=== PATIENT | female | born 1985 | race Caucasian/White ===

== ENCOUNTER 2019-09-01 08:35 | Outpatient (CLI) | payer MEDICAID, SELFPAY ==
--- NOTE | 2019-09-01 08:41 | US_ITS ---
WS: [id number] TRANSABDOMINAL FIRST TRIMESTER ULTRASOUND HISTORY: SUPERVISION NORMAL : 4 PARA: 3 COMPARISON: None available. FINDINGS: Cervical length is 4.2 cm; closed. Single live intrauterine . [place] rump length measuring 1.7 cm. Yolk sac measures 0.3 cm. Gestational sac measures 8w1d cm. cardiac tones 157 BPM. Estimated date of delivery 04/11/2020. The fetus appears to be viable with good motion. US/US OB <= 14 weeks fetus [id number] IMPRESSION: Viable at 8 weeks 1 day gestation with a due date April 11, 2020.
== END 2019-09-01 08:36 | disposition home or self-care (01) ==
LOC: US 08:38
PROVIDERS: Family Provider Family Medicine; PCP Family Medicine; Visit Provider Family Medicine
DX: Z34.91 Encounter for supervision of normal pregnancy, unspecified, first trimester (principal); Z3A.01 Less than 8 weeks gestation of pregnancy
CPT/HCPCS: 76801

== ENCOUNTER 2019-11-20 08:35 | Outpatient (CLI) | payer MEDICAID, SELFPAY ==
--- NOTE | 2019-11-20 08:45 | US_ITS ---
WS: [id number] ULTRASOUND TRANSABDOMINAL HISTORY: SUPERVISION OF NORMAL , MULTIPAROUS : 7 PARA: 3 COMPARISON: None available. FINDINGS: Cervical length is 3.9 cm; closed. Placenta grade 0, anterior cardiac tones 141 BPM. Fetus is seen in the cephalic presentation. Anterior placenta is noted. Multiple placental lakes are identified. Biparietal diameter measures 4.6 cm, equals 19w6d. Head circumference measures 17.3 cm, equals 19w6d. Abdomen circumference measures 14.6 cm, equals 19w6d. Femur length measures 3.2 cm, equals 19w6d. Estimated gestational age 19w6d An estimated delivery 04/09/2020. Estimated weight 317 g. The stomach, kidney, lateral ventricles, cerebellum, cisterna magnum, upper lips, are noted. US/US OB >= 14 weeks fetus [id number] IMPRESSION: 1. Single live intrauterine uterines . Estimated gestational age 19w 6d and estimated delivery 04/09/2020.
== END 2019-11-20 08:36 | disposition home or self-care (01) ==
PROVIDERS: Visit Provider Family Medicine
DX: Z34.92 Encounter for supervision of normal pregnancy, unspecified, second trimester (principal); Z3A.19 19 weeks gestation of pregnancy
CPT/HCPCS: 76805

== ENCOUNTER 2020-03-10 10:33 | Outpatient (CLI) | payer MEDICAID, SELFPAY ==
--- NOTE | 2020-03-10 10:36 | US_ITS ---
WS: [id number] OB ultrasound, 03/10/2020 Clinical Data: SMALL FOR GESTATIONAL AGE/MATHEW/EFW Comparison: OB ultrasound, 11/20/2019. Findings: There is a single intrauterine in the vertex presentation. The placenta is Anterior and gra de 3. There is a normal amount of amnionic fluid. The heart rate is 147 beats per minute. Measurements of growth and development: BPD: 8.8 cm HC: 32.4 cm AC: 28.5 cm FL: 6.7 cm The estimated weight is 2275 or approximately 5 lbs. 0 oz. The estimated gestational age is 34w 6d with an CURT of approximately 04/15/2020. The MATHEW is 11.72 cm. [place] [id number] Impression: 1. Single intrauterine in vertex presentation. 2. Estimated gestational age 34w6d with an CURT of 04/15/2020. 3. heart rate 147 beats per minute.
== END 2020-03-10 10:34 | disposition home or self-care (01) ==
LOC: US 10:34
PROVIDERS: PCP Family Medicine; Visit Provider Family Medicine
DX: O36.5930 Maternal care for other known or suspected poor fetal growth, third trimester, not applicable or unspecified (principal)
CPT/HCPCS: 76816

== ENCOUNTER 2020-03-15 10:11 | Outpatient (CLI) | payer MEDICAID, SELFPAY ==
[2020-03-15 10:17] VITALS: BP 107/62; PULSE 75; BMI 23.1
[2020-03-15 10:32] VITALS: BP 109/64; PULSE 84
== END 2020-03-15 10:45 | disposition home or self-care (01) ==
LOC: OPOB 10:12 → OBGYN 10:12
PROVIDERS: PCP Family Medicine; Visit Provider Family Medicine
DX: O36.5990 Maternal care for other known or suspected poor fetal growth, unspecified trimester, not applicable or unspecified (principal); Z3A.00 Weeks of gestation of pregnancy not specified
CPT/HCPCS: 59025

== ENCOUNTER 2020-03-18 11:52 | Outpatient (CLI) | payer MEDICAID, SELFPAY ==
--- NOTE | 2020-03-18 12:45 | US_ITS ---
WS: [id number] BIOPHYSICAL PROFILE AMNIOTIC FLUID HISTORY: FOLLOW UP MATHEW/BPP COMPARISON: 03/10/2020 Cardiac activity: 150 bpm. Cervix: closed. Placenta: Anterior, no previa or abruption. Placenta grade: 2 Parameters are as follows: Breathin Movement: 2 Tone: 2 Fluid volume: 2 Amniotic fluid index: 9.9 cm which is just above the 5th percentile for age. Slightly decreased as co mpared to 03/10/2020. Largest single vertical pocket 3.5 cm. US/US OB F/U w BPP wo NST IMPRESSION: 1. Biophysical profile score: 02/19. 2. Low normal amniotic fluid index. Slightly increased since 03/10/2020.
== END 2020-03-18 11:53 | disposition home or self-care (01) ==
LOC: RAD 11:55
PROVIDERS: PCP Family Medicine; Visit Provider Family Medicine
DX: O36.5930 Maternal care for other known or suspected poor fetal growth, third trimester, not applicable or unspecified (principal)
CPT/HCPCS: 76816; 76819

== ENCOUNTER 2020-03-18 12:21 | Outpatient (CLI) | payer MEDICAID, SELFPAY ==
[2020-03-18 13:00] VITALS: BMI 23.3
[2020-03-18 13:05] VITALS: BP 102/66; PULSE 81
[2020-03-18 14:10] VITALS: BP 102/66; PULSE 81
== END 2020-03-18 13:20 | disposition home or self-care (01) ==
LOC: OPOB 12:27 → OBGYN 12:29
PROVIDERS: PCP Family Medicine; Visit Provider Family Medicine
DX: O26.899 Other specified pregnancy related conditions, unspecified trimester (principal); Z3A.00 Weeks of gestation of pregnancy not specified; R10.9 Unspecified abdominal pain
CPT/HCPCS: 59025; 99211

== ENCOUNTER 2020-03-22 11:31 | Outpatient (CLI) | payer MEDICAID, SELFPAY ==
[2020-03-22 11:31] VITALS: BMI 23.6
[2020-03-22 11:47] VITALS: RESP 16; TEMP 36.3
== END 2020-03-22 12:17 | disposition home or self-care (01) ==
LOC: OPOB 11:38 → OBGYN 03-23 08:30
PROVIDERS: PCP Family Medicine; Visit Provider Family Medicine
DX: O36.5990 Maternal care for other known or suspected poor fetal growth, unspecified trimester, not applicable or unspecified (principal); Z3A.00 Weeks of gestation of pregnancy not specified
CPT/HCPCS: 59025; 99211

== ENCOUNTER 2020-03-25 12:27 | Outpatient (CLI) | payer MEDICAID, SELFPAY ==
--- NOTE | 2020-03-25 12:38 | US_ITS ---
WS: [id number] OB ultrasound for biophysical profile, 03/25/2020 Clinical Data: GROWTH RETARDATION,ANTEPARTUM 3RD TRIMESTER Comparison: OB ultrasound, 03/18/2020. Findings: There is a single intrauterine in the vertex presentation. The heart rate is 147 beat s per minute. The placenta is anterior.. The biophysical profile is 8 of 8 with normal scores for breathing, movement, posture and tone and amniotic fluid volume. There is asymmetry of the cisterna magna. As may be a normal variation. Th e ventricles were not well identified. The SD ratio of the umbilical artery entering the baby was 2.50, midportion 2.46 and entering the dinora centa 2.00. The MATHEW was 14.03 cm US/US OB F/U w BPP wo NST Impression: 1. Single intrauterine in vertex presentation. 2. Biophysical profile 8 of 8. 3. heart rate 147 beats per minute. 4. MATHEW 14.03 cm 5. Asymmetry of the cisterna magna and poorly identified ventricles. The findings were discussed with Dr. Velasquez.
== END 2020-03-25 12:28 | disposition home or self-care (01) ==
LOC: RAD 12:29
PROVIDERS: PCP Family Medicine; Visit Provider Family Medicine
DX: O36.5930 Maternal care for other known or suspected poor fetal growth, third trimester, not applicable or unspecified (principal)
CPT/HCPCS: 76816; 76819

== ENCOUNTER 2020-03-25 14:12 | Outpatient (CLI) | payer MEDICAID, SELFPAY ==
[2020-03-25 14:46] VITALS: BMI 29.0
[2020-03-25 15:17] VITALS: BP 110/67; PULSE 80; RESP 17
== END 2020-03-25 15:22 | disposition home or self-care (01) ==
LOC: OPOB 14:12 → OBGYN 14:13
PROVIDERS: PCP Family Medicine; Visit Provider Family Medicine
DX: O36.5990 Maternal care for other known or suspected poor fetal growth, unspecified trimester, not applicable or unspecified (principal); Z3A.00 Weeks of gestation of pregnancy not specified
CPT/HCPCS: 59025

== ENCOUNTER 2020-03-29 10:30 | Outpatient (CLI) | payer MEDICAID, SELFPAY ==
[2020-03-29 11:00] VITALS: RESP 18; TEMP 36.8; BMI 23.5
[2020-03-29 11:04] VITALS: BP 108/66; PULSE 83
[2020-03-29 11:17] VITALS: BP 107/64; PULSE 75
== END 2020-03-29 11:30 | disposition home or self-care (01) ==
LOC: OPOB 11:02
PROVIDERS: PCP Family Medicine; Visit Provider Family Medicine
DX: O36.5990 Maternal care for other known or suspected poor fetal growth, unspecified trimester, not applicable or unspecified (principal)
CPT/HCPCS: 59025

== ENCOUNTER 2020-04-01 12:34 | Outpatient (CLI) | payer MEDICAID, SELFPAY ==
--- NOTE | 2020-04-01 12:42 | US_ITS ---
WS: [id number] BIOPHYSICAL PROFILE Umbilical artery Doppler EVALUATION HISTORY: GROWTH RETARDATION,ANTEPARTUM/3RD TRIMESTER COMPARISON: 03/25/2020 Cardiac activity: 120 bpm. Cervix: closed. Placenta: Anterior placenta. Separate lobe of the placenta anteriorly is probably a succenturiate lob e. Placenta grade: 2 position: Cephalic. Amniotic fluid index: 10.6 cm; above the 5th percentile. Abnormal appearance to the posterior fossa. Dilated cystic collection posterior fossa. Cerebellum is small caliber and the vermis is hypoplastic or absent. Parameters are as follows: Breathin Movement: 2 Tone: 2 Fluid volume: 2 UMBILICAL ARTERY DOPPLER Waveform analysis: Normal systolic and diastolic velocities. Diastolic velocity remains above the bas hern[place]. Normal upstroke of waveform. SD ratios: SD ratios range from 1.92-2.69. Resistivity indices: 0.52 -0.63 US/US OB F/U w BPP wo NST IMPRESSION: 1. Biophysical profile score: 8/8. 2. Normal umbilical Doppler evaluation. 3. 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
== END 2020-04-01 12:35 | disposition home or self-care (01) ==
LOC: RAD 12:35
PROVIDERS: PCP Family Medicine; Visit Provider Family Medicine
DX: O36.5930 Maternal care for other known or suspected poor fetal growth, third trimester, not applicable or unspecified (principal)
CPT/HCPCS: 76816; 76819

== ENCOUNTER 2020-04-01 14:03 | Outpatient (CLI) | payer BC, MEDICAID, SELFPAY ==
[2020-04-01 14:14] VITALS: TEMP 36.7
[2020-04-01 14:15] VITALS: BMI 23.3
[2020-04-01 14:25] VITALS: BP 110/67; PULSE 69
[2020-04-01 14:40] VITALS: BP 104/69; PULSE 69
[2020-04-01 14:55] VITALS: BP 128/76; PULSE 78
[2020-04-01 15:00] VITALS: BP 128/76; PULSE 78; TEMP 36.7
[2020-04-04 10:42] LABS: Coronavirus Lab Test PTC Negative
== END 2020-04-01 15:00 | disposition home or self-care (01) ==
LOC: OPOB 14:12 → OBGYN 14:13
PROVIDERS: PCP Family Medicine; Visit Provider Family Medicine
DX: O36.5990 Maternal care for other known or suspected poor fetal growth, unspecified trimester, not applicable or unspecified (principal); Z3A.00 Weeks of gestation of pregnancy not specified
CPT/HCPCS: 59025; 87635; 99211

== ENCOUNTER 2020-04-05 11:15 | Outpatient (CLI) | payer MEDICAID, SELFPAY ==
[2020-04-05 11:30] VITALS: RESP 16; TEMP 36.4; BMI 23.5
[2020-04-05 12:10] VITALS: BP 104/71; RESP 16; TEMP 36.4
[2020-04-05 12:14] VITALS: BP 102/69; BP 104/71; BP 91/71; PULSE 74; PULSE 76; PULSE 80
== END 2020-04-05 12:05 | disposition home or self-care (01) ==
LOC: OPOB 11:21
PROVIDERS: Absent Provider Family Medicine; PCP Family Medicine; Visit Provider Family Medicine
DX: O36.5990 Maternal care for other known or suspected poor fetal growth, unspecified trimester, not applicable or unspecified (principal); Z3A.00 Weeks of gestation of pregnancy not specified
CPT/HCPCS: 59025; 99211

== ENCOUNTER 2020-04-07 06:15 | Inpatient (IN) | payer MEDICAID, SELFPAY ==
[2020-04-07] VITALS (53 sets, daily range): BP systolic 0–144; BP diastolic 0–83; PULSE 55–101; RESP 16–18; TEMP 36.4–37.1; O2SAT 93–100; BMI 23.6
[2020-04-07 07:30] LABS: Basophils % 0.3 %; Eosinophils # 0.1 10^3/uL (0.0-0.8); Hemoglobin 11.3 g/dL (11.5-15.3); Lymphocytes # 1.8 10^3/uL (0.8-4.8); Lymphocytes % 26.5 %; Mean Corpuscular HGB Conc 31.4 g/dL (30.0-36.0); Mean Corpuscular Hemoglobin 26.6 pg (28.0-34.0); Mean Corpuscular Volume 84.7 fL (81-99); Mean Platelet Volume 13.1 fL (7.4-10.4); Monocytes # 0.6 10^3/uL (0.2-0.9); Monocytes % 8.3 %; Neutrophils # 4.37 10^3/uL (1.8-7.7); Neutrophils % 63.5 %; Nucleated Red Blood Cells % 0 %; Platelet Count 164 10^3/cmm (130-400); Red Blood Count 4.25 10^6/uL (4.1-5.3); Red Cell Distribution Width 13.6 % (12.1-15.1); White Blood Count 6.9 10^3/uL (4.0-10.0)
[2020-04-07] MEDS: oxytocin 30 UNIT/500 ML BAG 4 UNIT IV (07:30)
[2020-04-07] MEDS: dextrose 5%-lactated ringers 1,000 ML 125 ML IV (07:31)
--- NOTE | 2020-04-07 08:18 | P.HP_ITS ---
Providers/Chief Complaint Primary Care Provider: Juan Velasquez MD Chief Complaint: IOL History of Present Illness Lois Ibrahim is a 34 year old at 39.3 weeks gestation by 8-week ultrasound inconsistent with unsure LMP. Her is complicated by history of heavy bleeding, history of rapid delivery after induction, history of IUGR, rubella nonimmune, asymmetric growth, enlarged cisterna magna on 38-week ultrasound with negative NIPT testing. The patient presents for induction of labor secondary to abnormal findings on the enlarged cisterna magna. The patient was found to have this enlargement on an ultrasound done for estimated weight. The patient was urgently sent to perinatology last week and they felt that the findings were not consistent with Dandy-Walker malformation and an NIPT test was done that was negative. They felt that it was safe for the to deliver here. Currently the patient denies any chest pains, shortness of breath, fever, nausea, vomiting, diarrhea, constipation, dysuria. She denies any vaginal bleeding and leakage of fluid. Medications/Allergies Home Medications Medication Instructions Recorded Confirmed Last Taken Type No Known Home Medications 03/15/20 03/22/20 Unknown History Allergies Allergy/AdvReac Type Severity Reaction Status Date / Time No Known Allergies Allergy Verified 03/25/20 14:51 PFSH Acute PFSH: Medical History Request for sterilization Family History Denies family history of Diabetes Clotting disorder Hyperlipidemia Anesthesia complication Bleeding disorder Hypertension Stroke Social History Smoking and tobacco status: never smoked Alcohol intake: never Female Reproductive History: : 7 Vitals/I&O/Wt Last Vital Signs Temp 98.4 F 04/07/20 07:04 Pulse 69 04/07/20 08:15 Resp 16 04/07/20 07:04 BP 130/82 04/07/20 08:15 04/06/20 04/07/20 04/07/20 22:59 06:59 14:59 Intake Total 2 / 2 Balance 2 / 2 Weight last 48 hrs Weight 4.868 oz Weight 138 lb Physical Exam Narrative: EXAM NARRATIVE: General: Alert and oriented x3 Eyes: Pupils equal round and reactive to light and accommodation Mouth: Mucous membranes moist, pharynx non-erythematous Cardiac: Regular rate and rhythm without murmurs Lungs: Clear to auscultation bilaterally without wheezes, crackles or rhonchi Abdomen: Soft, non-tender, fundus small for gestational age Extremities: Trace edema in the bilateral lower extremities Data : 04/07/20 06:50 A&P Additional A&P Information Lois Ibrahim is a 34 year old at 39.3 weeks gestation by 8-week ultrasound inconsistent with unsure LMP. Her is complicated by history of heavy bleeding, history of rapid delivery after induction, history of IUGR, rubella nonimmune, asymmetric growth, enlarged cisterna magna on 38-week ultrasound with negative NIPT testing. Per recommendations from perinatology the patient should be delivered now that she is 39 weeks gestation. Her NIPT testing returned negative yesterday. The patient has been started on IV Pitocin and she is charlie well every 2 to 3 minutes. heart tones are in the mid 130s with moderate variability and good accelerations with a category 1 tracing. I had a lengthy discussion with the patient and her regarding the possibility of abnormalities with the ultrasound showing changes in the cisterna magna. They were comfortable with delivering here. We will watch for any signs of complications after delivery. The patient does have a history of heavier bleeding after her delivery in 2011 but did not have bleeding issues in the last 2 pregnancies. We will watch for signs of bleeding issues for sure. Overall patient is doing well. Patient is GBS negative. Continue with induction. The patient did have spontaneous rupture membranes approximately 10 minutes ago while getting up to go to the bathroom. Clear fluid was noted. Attestations Medical Necessity Statement*: The patient will be here for greater than 2 midnights due to routine intrapartum and management of labor and delivery. Coding Level of Care Code Acute Associate Property Manager for Yessenia Carroll
--- NOTE | 2020-04-07 08:50 | ANES.PROC ---
Anesthesia Procedures Procedure/Date: 04/07/20 Epidural: Time Out Performed: Yes Consents Signed: Procedure Consent Consent: requested by attending/covering physician, from patient, risks and benefits reviewed and patient agrees to proceed Lumbar Level: L3-L4 Epidural position: sitting Epidural procedure: sterile prep of area, 1% lidocaine to numb the area, 18 g needle, negative for paresthesia passed, neg for paresthesia, test dose given, 1.5% xylocaine 1:200k epi (5 cc), 0.2% Ropivacaine bolus ml (5 ml), placed PCEA, no systemic response, sterile dressing applied, L.U.D. no apparent complications and 0.2% Ropiavacaine @ mls/hr (13 ml) Additional Comments: ALEXUS at 4 cm
[2020-04-07] MEDS: lactated ringers 1,000 ML 999 ML IV (08:56)
[2020-04-07] MEDS: ondansetron 2 mg/ML SDV 2 mL 4 MG IVP (09:28)
--- NOTE | 2020-04-07 10:13 | PM.DELIVERY ---
Delivery Note: Date of delivery: April 07, 2020 Pre-delivery diagnoses: 1. Intrauterine at 39.3 weeks gestation 2. Asymmetric growth with enlarged cisterna magna 3. History of hemorrhage 4. Rubella nonimmune Post-delivery diagnoses: 1. Intrauterine status post spontaneous vaginal delivery at 39.3 weeks gestation 2. Asymmetric growth with enlarged cisterna magna 3. History of hemorrhage 4. Rubella nonimmune 5. Delivery of healthy infant female weighing 6 pounds 12 ounces with Apgars of 9 and 9 Procedure: Spontaneous vaginal delivery Op report anesthesia: Epidural Estimated blood loss (mL): 100 Findings: Lois Ibrahim is a 34 year old at 39.3 weeks gestation by 8-week ultrasound inconsistent with unsure LMP. Her is complicated by history of heavy bleeding, history of rapid delivery after induction, history of IUGR, rubella nonimmune, asymmetric growth, enlarged cisterna magna on 38-week ultrasound with negative NIPT testing. Pre-Delivery Course: The patient presented to labor and delivery for induction of labor secondary to abnormal measurements of the cisterna magna and concern for asymmetric growth. The patient had been seen at perinatology in [place] and they had recommended delivery during the 39th week. They felt that it was safe for the infant to deliver here. NIPT testing was negative. The patient was 4 cm dilated upon admission and was started on IV Pitocin at approximately 7:30 AM on 04/07/2020. The patient responded quickly and had regular contractions. SROM took place at 8:12 AM on 04/07/2020. Clear fluid was noted. The patient made rapid change and was complete by 9:36 AM on 04/07/2020. Delivery: The patient began pushing at 9:40 AM on 04/07/2020. The patient pushed well and the infant delivered in the OA position at 9:45 AM on 04/07/2020. The left shoulder was the anterior shoulder and it delivered with downward pressure. The rest of the delivered without complication. The infant was crying immediately upon delivery. The mouth and nose were bulb suctioned by myself. The infant was placed on the mother's chest where the nurses were waiting to care for her. The cord was clamped by myself after approximately 1 minute and cut by the infant's father. Cord blood was obtained. The cord was then drained of blood and traction was placed on the umbilical cord. Uterine massage was done and the placenta delivered without complication at 9:51 AM on 04/07/2020. The placenta was noted to be intact with a central umbilical cord insertion site with loose fixation of the vessels to the placenta. The uterus was massaged and the patient had mild bleeding. The cervix was inspected and no lacerations were noted. The vaginal wall was inspected and no lacerations were noted. The uterus is currently firm and midline and low. Currently both the mother and are doing very well. Coding Level of Care Code Acute Central Service Supply Distributor for Chg Carly
--- NOTE | 2020-04-07 11:26 | PC.NURSE ---
SEE NOTE ON BABY'S CHART
--- NOTE | 2020-04-07 12:15 | PC.NURSE ---
UTERUS TRES DEVIATED SO PT UP TO BATHROOM AND VOIDED LARGE AMOUNT AND THEN AMBULATED TO 205 AND ORIENTED TO HER ROOM, CALL LIGHT SYSTEM AND WENT OVER PP PACK,ETC.
[2020-04-07] MEDS: docusate sodium 100 mg Capsule PO (17:19)
--- NOTE | 2020-04-07 17:25 | PM.PN ---
Subjective Subjective: Interval history: Ms. Ibrahim is a 34 y/o s/p spontaneous vaginal delivery. Vitals/I&O/Wt Last Vital Signs Temp 98.3 F 04/07/20 15:24 Pulse 74 04/07/20 15:24 Resp 16 04/07/20 15:24 BP 99/57 04/07/20 15:24 Pulse Ox 96 04/07/20 15:24 04/07/20 04/07/20 04/07/20 06:59 14:59 22:59 Intake Total Output Total 400 / 400 Balance -385 / -385 Weight last 48 hrs Weight 138 g Weight 62.596 kg Physical Exam Narrative: EXAM NARRATIVE: GA; alert and oriented x 3 HEENT: normal Breasts: engorged Nipples - skin intact Lungs; clear to auscultation Heart: regular rhythm, no murmurs. Abd: Appropriately tender. BS+. Uterine fundus below umbilicus. No Fundal Tenderness. Perineum: normal lochia. Extremities: no edema, no cyanosis, no tenderness. Urinary Catheter Management^: Navarro: Cath Placed During This Visit: yes, but has since been removed by the nurse Reason for Continuing Indwelling Catheter: Other Urinary Catheter Date of Insertion: 04/07/20 Urinary Catheter Time of Insertion: 08:50 Date Urinary Catheter Removed: 04/07/20 Time Urinary Catheter Discontinued: 09:38 Data : 04/07/20 06:50 A&P Assessment and plan (1) Request for sterilization: 34-year-old female G 8 P 4 Status post spontaneous vaginal delivery desire permanent sterilization. She is requesting tubal ligation. The patient was counseled regarding all methods of contraception, risk and complications. She elected to continue to proceed with the tubal ligation as planned when she delivers. She has signed a consent on 02/29/2020, and was advised of the state requirement of 30 days of consent prior to the tubal ligation. partial salpingectomy is associated with lower failure rates than interval tubal occlusions done via laparoscopy. She was counseled regarding the procedure, alternative, risks and complications. Complications of tubal sterilization include problems like but not limited to anesthesia, hemorrhage, organ damage, and mortality. Although pregnancies after a sterilization procedure are rare, there is substantial risk that any post-sterilization could be ectopic. The overall failure rate is on the order of 0.5% in the first year but a study showed that sterilization failures vary by both age at sterilization and the method used. The study also found that the risks of accumulate over time, and that for women aged 18 to 27 years, failure rates can be as high as 5% with bipolar coagulation and the spring clip. The patient was informed of the risks and benefits of the procedure. Risks included but were not limited to bleeding, infection, and injury to internal organs. The patient was counseled on the risk of sterilization failure. The patient was informed that in the event a occurs the risk of ectopic is increased. The patient was counseled that bilateral tubal ligation is intended to be permanent and nonreversible. She was also counseled that there are nonpermanent forms of control available to her. The patient expressed understanding of the risks involved, all questions were answered. She was informed to notified the nursing personnel upon her arrival to labor and delivery that she had requested a tubal ligation and had signed a consent. Status: Acute Attestations Medical Necessity Statement*: In my professional opinion per admitting diagnosis Coding Level of Care Code Acute Children'S Nursery Assistant for g Fwd Diagnoses Request for sterilization Z30.2
[2020-04-07] MEDS: acetaminophen 325 mg Tablet 650 MG PO (17:26)
[2020-04-07 22:25] LABS: Hematocrit 33.8 % (37.0-47.0); Hemoglobin 10.6 g/dL (11.5-15.3); Mean Corpuscular HGB Conc 31.4 g/dL (30.0-36.0); Mean Corpuscular Hemoglobin 26.7 pg (28.0-34.0); Mean Corpuscular Volume 85.1 fL (81-99); Mean Platelet Volume 12.6 fL (7.4-10.4); Platelet Count 141 10^3/cmm (130-400); Red Blood Count 3.97 10^6/uL (4.1-5.3); Red Cell Distribution Width 13.7 % (12.1-15.1); White Blood Count 8.4 10^3/uL (4.0-10.0)
[2020-04-08] VITALS (12 sets, daily range): BP systolic 102–135; BP diastolic 61–83; PULSE 61–90; RESP 15–21; TEMP 36.3–36.7; O2SAT 97–99
--- NOTE | 2020-04-08 06:22 | PM.PN ---
Subjective Subjective: Interval history: Denies complaints this morning. States that she still wishes to proceed with sterilization. Vitals/I&O/Wt Last Vital Signs Temp 98.1 F 04/08/20 03:36 Pulse 62 04/08/20 03:36 Resp 18 04/08/20 03:36 BP 102/65 04/08/20 03:36 Pulse Ox 98 04/08/20 03:36 04/07/20 04/07/20 04/08/20 14:59 22:59 06:59 Intake Total Output Total 400 / 400 Balance -385 / -385 Weight last 48 hrs Weight 4.868 oz Weight 138 lb Physical Exam Const: COMMON NORMALS: no acute distress, average body habitus, alert and well nourished GENERAL APPEARANCE: well developed ORIENTATION/CONSCIOUSNESS: Yes oriented to person, Yes oriented to place and Yes oriented to time GI: COMMON NORMALS: Soft to palpation, non-tender, No hepatosplenomegaly present and no masses (Except for nontender uterus) AUSCULTATION: Yes normoactive bowel sounds PALPATION: Yes Soft to palpation, Yes No hepatosplenomegaly present and No Hernia present : EXTERNAL FEMALE EXAM: No Hernia present Neuro: SENSORIUM/ORIENTATION: Yes alert, Yes oriented to person, Yes oriented to place and Yes oriented to time Psych: COMMON NORMALS: normal affect MOOD & AFFECT: Yes euthymic mood Urinary Catheter Management^: Navarro: Cath Placed During This Visit: yes, but has since been removed by the nurse Reason for Continuing Indwelling Catheter: Other Urinary Catheter Date of Insertion: 04/07/20 Urinary Catheter Time of Insertion: 08:50 Date Urinary Catheter Removed: 04/07/20 Time Urinary Catheter Discontinued: 09:38 Data : 04/07/20 21:50 A&P Assessment and plan (1) Request for sterilization: Patient is day 1 status post vaginal delivery by Dr. Velasquez. She still desires sterilization. Reviewed with her this morning the permanence of sterilization, failure rate, risk of ectopic and risks of the surgery. Questions were answered. Patient being prepared for surgery ( bilateral partial salpingectomy). Status: Acute Attestations Medical Necessity Statement*: Patient having sterilization performed today Coding Level of Care Code Acute Early Childhood Education Coordinator for shelley Fwodilia Diagnoses Request for sterilization Z30.2
--- NOTE | 2020-04-08 06:38 | P.ANESPOST_ITS ---
Inpatient post-anesthesia follow up: Airway intact: Yes Vital signs: Temperature 97.9 F Pulse Rate 68 Respiratory Rate 16 Blood Pressure 135/83 Pulse Oximetry 99 Oxygen Delivery Me thod Room Air Oxygen Flow Rate Fraction of Inspir ed Oxygen Hydration adequate: Yes Nausea and vomiting: No Pain level: 1 Mental status: Baseline Additional Comments: No signs of infection at neuraxial site, up and walking since epidural removed w/ no lower extremity numbness/we akness, urintating since garcia removed, denies headache
--- NOTE | 2020-04-08 06:39 | ANES.PREANE2 ---
Pre-Anesthetic Assessment Pre-Anesthetic Assessment: Height/Weight: Height 1.63 m Weight 138 g Temp Pulse Resp BP Pulse Ox 97.9 F 68 16 135/83 99 04/08/20 06:33 04/08/20 06:33 04/08/20 06:33 04/08/20 06:33 04/08/20 06:33 Preop Diagnosis: IUP Proposed Procedure: Operation Date: 04/08/20 07:00 Proposed Procedures p Bilateral Tubal Ligation(Not Applicable) - Uriah Stanley MD Familial anesthetic complications: none Was Beta Isi taken within 24 hours: N/A Last intake: Intake NPO > 8 hrs Last Liquid Date 04/08/20 Last Liquid Time 23:00 Last Solid Date 04/08/20 Last Solid Time 20:00 Social: Social History: No alcohol and No tobacco Exam: Pre-Anes Outpt Exam: alert, oriented x 3, clear to auscultation bilaterally and regular rate & rhythm Airway: Cervical ROM: WNL MP: 2 Dentition: Full Anesthetic Plan: ASA status: 1 Anesthesia: General Other: RSI Risk of > 500 ml blood loss (7ml/kg in children): No Meds/Allergies Current Medications: Current Medications Generic Name Dose Route Start Last Admin Trade Name Freq PRN Reason Stop Dose Admin Acetaminophen 650 mg 04/07/20 07:04 04/07/20 17:26 Tylenol PO 650 mg Q6H PRN Administration Mild pain or temp > 100.4 Docusate Sodium 100 mg 04/07/20 18:00 04/07/20 17:19 Colace PO 100 mg BID IGGY Administration Lactated Ringer's 1,000 mls @ 999 m ls/hr 04/07/20 07:04 04/07/20 08:56 Lactated Ringers IV 999 mls/hr .Q1H1M PRN Administration Per L&D Rescitati on Protocol Oxytocin 30 unit in 500 ml s @ 1 mls/hr 04/07/20 07:15 04/07/20 08:00 Pitocin IV 8 milliunit/min .Q24H IGGY 8 mls/hr Titration Protocol 1 MILLIUNIT/MIN Dextrose/Lactated Ringer's 1,000 mls @ 125 m ls/hr 04/07/20 07:15 04/07/20 15:31 Dextrose 5%-Lact ated Ringers IV Not Given .Q8H IGGY Ropivacaine 200 mg in 100 mls @ 13 mls/hr 04/07/20 08:30 04/07/20 15:33 Naropin Premix EPIDURAL Not Given .Q7H42M IGGY Ibuprofen 800 mg 04/07/20 15:00 04/07/20 20:08 Motrin PO 800 mg TID IGGY Administration Ondansetron HCl 4 mg 04/07/20 08:16 04/07/20 09:28 Zofran IVP 4 mg Q4H PRN Administration NAUSEA PFSH Anesthesia PFSH: Medical History Request for sterilization Family History Denies family history of Diabetes Clotting disorder Hyperlipidemia Anesthesia complication Bleeding disorder Hypertension Stroke Social History Smoking and tobacco status: never smoked Alcohol intake: never Female Reproductive History: : 7 Data Anesthesia CBC & Chem 7: 04/07/20 21:50 Other Labs: Laboratory Results - last 48 hr 04/07/20 04/07/20 06:50 21:50 WBC 6.9 8.4 RBC 4.25 3.97 L Hgb 11.3 L 10.6 L Hct 36.0 L 33.8 L MCV 84.7 85.1 MCH 26.6 L 26.7 L MCHC 31.4 31.4 RDW 13.6 13.7 Plt Count 164 141 MPV 13.1 H 12.6 H Neut % (Auto) 63.5 Lymph % (Auto) 26.5 [place] % (Auto) 8.3 Eos % (Auto) 1.0 Baso % (Auto) 0.3 Neut # (Auto) 4.37 Lymph # (Auto) 1.8 [place] # (Auto) 0.6 Eos # (Auto) 0.1 Baso # (Auto) 0.0 Nucleated RBC % (auto) 0 Nucleated RBCs # 0.0 Cardiac Studies: No Data to Display
[2020-04-08] MEDS: sodium chloride 0.9% 1,000 ML 30 ML IV (06:42)
[2020-04-08] MEDS: citric acid-sodium citrate 30 mL UDC PO (06:50)
[2020-04-08] MEDS: metoclopramide 5 mg/mL SDV 2 mL 10 MG IVP (06:52)
[2020-04-08] MEDS: midazolam 1 mg/mL INJ 2 mL 2 MG IVP (06:52)
[2020-04-08] MEDS: famotidine 20 mg/2 mL INJ IVP (06:52)
--- NOTE | 2020-04-08 07:51 | PM.OP ---
Operative Report Date of procedure: April 08, 2020 Pre-op Diagnosis: Undesired fertility Post-op Diagnosis: Undesired fertility Procedure Done: bilateral partial salpingectomy Specimens removed/disposition: Portions of right and left fallopian tubes Surgeon: Uriah Stanley Gardening Supervisor: None Anesthesia: General Estimated blood loss (mL): 2 Complications: None Findings: Normal appearing tubes and ovaries. Brief History: Patient is a 34-year-old white female, 7, now para 4-0-3-4 with an LMP of 07/06/2019 and an EDC of 04/11/2020 who is status post vaginal delivery. She delivered on 04/07/[address] Velasquez. She had stated during the she did not want any further children and wanted to proceed with sterilization. She had been seen in our office for consultation by Dr. Lechuga on 03/15/2020. Following delivery, patient was still adamant she wanted to proceed with sterilization. This morning, permanence of the procedure was reviewed with her. She still wished to proceed with sterilization. Risks, failure rates, and risk of ectopic was reviewed. Questions were answered. Procedure: Patient was taken to the operating room where general anesthesia was obtained. Bladder was drained. She was prepped and draped in the usual sterile fashion in a dorsal supine position. The infraumbilical region was injected with a 50-50 mixture of 1% lidocaine with epinephrine and 0.5% Marcaine plain. An infraumbilical skin incision was made with the knife and dissection carried down to the fascia bluntly. The fascia was grasped with hemostats and incision made with the knife. Peritoneum was bluntly entered. The peritoneal and fascial incision was extended with Donaldson scissors. [place] retractors were inserted. The left fallopian tube was identified, brought to the incision, and grasped with a Abdi clamp. It was followed to the fimbriated end. Approximately midway along the tube, a window was made in the underlying mesosalpinx with electrocautery. The segment was tied proximally and distally with 0 plain suture. The intervening segment was excised and the ends cauterized with electrocautery. The tube was noted to be hemostatic. The right fallopian tube was identified, brought to the incision, and grasped with a Olla clamp. It was followed to the fimbriated end. Approximately midway along the tube, a window was made in the underlying mesosalpinx with electrocautery. The segment was tied proximally and distally with 0 plain suture. The intervening segment was excised and the ends were cauterized with electrocautery. Both tubal areas were noted to be hemostatic. The peritoneum and fascia were closed as a single layer in a running fashion using 0 Vicryl suture. The subcutaneous layer was reapproximated using 4-0 Vicryl suture in a running fashion. The skin was reapproximated using 4-0 Vicryl suture in a subcuticular fashion. Steri-Strips were applied. Patient tolerated the procedure well. Sponge and needle counts were correct. DRAINS: None POSTOPERATIVE STATUS: Patient was transferred to recovery room in satisfactory condition.
--- NOTE | 2020-04-08 08:00 | SUR.PHASEI ---
0758 PATIENT TO PACU FROM OR. RR EVEN AND UNLABORED. SPO2 99% ON RA.
--- NOTE | 2020-04-08 08:15 | PM.PACU ---
PACU note Post-Anesthesia Exam: awake and vital signs stable Disposition: back to floor
--- NOTE | 2020-04-08 08:31 | SUR.PHASEI ---
0816 PATIENT TO OB. DENIES PAIN. TOLERATING ICE CHIPS. PATIENT AMBULATORY FROM [facility] TO BED ON OB, GAIT STEADY.
[2020-04-08] MEDS: docusate sodium 100 mg Capsule PO (08:57)
[2020-04-08] MEDS: prenatal vitamin Capsule 1 CAP PO (08:57)
--- NOTE | 2020-04-08 11:23 | P.DS_ITS ---
Discharge Providers Date of Admission: 04/07/20 06:15 Date of Discharge: April 08, 2020 Attending Provider at Admission: Juna Velasquez MD Attending Provider at Discharge: Juan Velasquez MD Primary Care Provider: Juan Velasquez MD Diagnoses at Discharge Discharge Diagnosis (1) Request for sterilization: Status: Acute (2) Intrauterine : Status: Acute (3) Advanced maternal age (AMA) in : Status: Acute (4) Abnormal ultrasound of head in : Status: Acute (5) Rubella non-immune status, antepartum: Status: Acute Reason for Visit Reason for Visit: IOL Hospital Course Hospital Course: Lois Ibrahim is a 34 year old G7 now P4 status post sp ontaneous vaginal delivery at 39.3 weeks gestation by 8-week ultrasound inconsistent with unsure LMP. Her was complicated by history of heavy bleeding, history of rapid delivery after induction, history of IUGR, rubella nonimmune, asymmetric growth, enlarged cisterna magna on 38-week ultrasound with negative NIPT testing. Pre-Delivery Course: The patient presented to labor and delivery for induction of labor secondary to abnormal measurements of the cisterna magna and concern for asymmetric growth. The patient had been seen at perinatology in [place] and they had recommended delivery during the 39th week. They felt that it was safe for the infant to deliver here. NIPT testing was negative. The patient was 4 cm dilated upon admission and was started on IV Pitocin at approximately 7:30 AM on 04/07/2020. The patient responded quickly and had regular contractions. SROM took place at 8:12 AM on 04/07/2020. Clear fluid was noted. The patient made rapid change and was complete by 9:36 AM on 04/07/2020. Delivery: The patient began pushing at 9:40 AM on 04/07/2020. The patient pushed well and the infant delivered in the OA position at 9:45 AM on 04/07/2020. The left shoulder was the anterior shoulder and it delivered with downward pressure. The rest of the delivered without complication. The infant was crying immediately upon delivery. The mouth and nose were bulb suctioned by myself. The infant was placed on the mother's chest where the nurses were waiting to care for her. The cord was clamped by myself after approximately 1 minute and cut by the 's father. Cord blood was obtained. The cord was then drained of blood and traction was placed on the umbilical cord. Uterine massage was done and the placenta delivered without complication at 9:51 AM on 04/07/2020. The placenta was noted to be intact with a central umbilical cord insertion site with loose fixation of the vessels to the placenta. The uterus was massaged and the patient had mild bleeding. The cervix was inspected and no lacerations were noted. The vaginal wall was inspected and no lacerations were noted. The uterus is currently firm and midline and low. Currently both the mother and are doing very well. : The patient has done well and her bleeding has decreased well. Her pain has been well controlled. She is ambulating, voiding, passing gas and tolerating food by mouth. The patient had a tubal ligation done by Dr. Stanley. She is showing no signs of complications from this currently. Routine instructions were discussed and the patient will follow-up with me in clinic at 6 weeks or sooner if needed. She is to follow-up with Dr. Stanley as scheduled. Physical Exam Narrative: EXAM NARRATIVE: General: Alert and oriented x3 Mouth: Mucous membranes moist, pharynx non-erythematous Cardiac: Regular rate and rhythm without murmurs Lungs: Clear to auscultation bilaterally without wheezes, crackles or rhonchi Abdomen: Soft, mild diffuse tenderness. Incision is clean and dry. Uterus is firm and below the umbilicus. Extremities: Trace edema in the bilateral lower extremities Urinary Catheter Management^: Navarro: Cath Placed During This Visit: yes, but has since been removed by the nurse Reason for Continuing Indwelling Catheter: Other Urinary Catheter Date of Insertion: 04/07/20 Urinary Catheter Time of Insertion: 08:50 Date Urinary Catheter Removed: 04/07/20 Time Urinary Catheter Discontinued: 09:38 Discharge Data Data Completed and Pending: Pending at discharge Category Date Time Status Pathology: Surgic al [PTH] Routine Pth 04/08/20 08:01 Received Labs from last 24 hours 04/07/20 21:50 WBC 8.4 RBC 3.97 L Hgb 10.6 L Hct 33.8 L MCV 85.1 MCH 26.7 L MCHC 31.4 RDW 13.7 Plt Count 141 MPV 12.6 H Vitals: Last Vital Signs Temp 97.4 F L 04/08/20 08:15 Pulse 66 04/08/20 10:00 Resp 16 04/08/20 10:00 BP 111/71 04/08/20 10:00 Pulse Ox 97 04/08/20 10:00 Discharge Plan Discharge Patient Disposition: Home Condition: Good Prescriptions: New -U 106.5-1 mg Capsule 1 cap PO DAILY Qty: 30 RF: 0 ferrous sulfate 325 mg (65 mg iron) tablet 325 mg PO DAILY Qty: 30 RF: 0 ibuprofen 800 mg Tablet 800 mg PO TID Qty: 60 RF: 0 No Action No Known Home Medications RF: 0 Discharge Orders: Discharge Order (Routine); Ordered 04/08/20 Ordered By: Juan Velasquez Referrals: Juan Velasquez MD [Primary Care Provider] - 6 Weeks Discharge Diet: Advance as tolerated Discharge Activity: Limit activity as instructed Activity Restrictions/Additional Instructions: Nothing per vagina for 6 weeks. If you have any concerns, please call Dr. Velasquez's office for sooner appointment. Discharge Attestations Time Spent in Discharge Care*: greater than 30 min Quality Metrics Clinical Quality Measures During this hospital stay, did patient experience: None Coding Level of Care Code Acute Team Cdl Driver for Chg Fwd Diagnoses Request for sterilization Z30.2 Intrauterine Z34.90 Advanced maternal age (AMA) in Abnormal ultrasound of head in R93.0 Rubella non-immune status, antepartum O99.89; Z28.3
[2020-04-08] MEDS: lanolin oint 7 gm 1 APPLIC TOPICAL (11:25)
[2020-04-08] MEDS: measles,mumps,rubella pf Vial (w/diluent) 0.5 ML SUBCUT (15:04)
== END 2020-04-08 15:40 | disposition home or self-care (01) | DRG 798 ==
LOC: OPOB 10:20 → OBGYN 10:40
PROVIDERS: Obstetrics & Gynecology; Admitting Provider Family Medicine; PCP Family Medicine; Visit Provider Family Medicine
PROC: 0U574ZZ Destruction of Bilateral Fallopian Tubes, Percutaneous Endoscopic Approach (ICD-10-PCS; CPT 58605; principal; 2020-04-08 07:00)
DX: O28.3 Abnormal ultrasonic finding on antenatal screening of mother (principal); Z37.0 Single live birth; Z3A.39 39 weeks gestation of pregnancy
CPT/HCPCS: 12345; 36415; 51702; 59025; 59409; 85025; 85027; 88302; 90707; 96372; 98960; 99211; J1100; J1885; J2250; J2405; J2710; J2765; J2795; J3010; J3490; J7030

== ENCOUNTER → 2021-12-06 13:30 | Outpatient (BNVA) | payer BC, MEDICAID, SELFPAY | PROVIDERS: PCP Family Medicine; Visit Provider Podiatrist Foot & Ankle Surgery | DX: L60.3 Nail dystrophy (principal) | CPT/HCPCS: 99203 ==

== ENCOUNTER → 2021-12-21 08:01 | Outpatient (BNVA) | payer BC, MEDICAID, SELFPAY | PROVIDERS: PCP Family Medicine; Visit Provider Podiatrist Foot & Ankle Surgery | DX: B35.3 Tinea pedis (principal); L60.3 Nail dystrophy | CPT/HCPCS: 99213; 99214 ==

== ENCOUNTER 2024-01-26 21:29 | Emergency (ER) | payer BC, MEDICAID, SELFPAY ==
[2024-01-26 21:57] VITALS: BP 102/62; PULSE 77; RESP 18; TEMP 36.9; O2SAT 99; BMI 22.3
--- NOTE | 2024-01-26 22:29 | ED_ITS ---
HPI - Skin/Abscess/Foreign Bdy General: Chief complaint: Skin/Abscess/Foreign Body Stated complaint: Stung on foot, Allegic reation Time Seen by Provider: 01/26/24 21:31 History of Present Illness: 38-year-old female comes in today with a pain to the right foot about 8:00. Patient taken 50 mg of Benadryl at 830. Patient continues to have hives and swelling to the right foot. Patient does not report any nausea, shortness of breath, or chest pain. Patient appears nontoxic. Patient reports no chronic medical problems except for iron deficiency. Review of Systems General: Reports: 10 or more systems reviewed and unremarkable except in HPI and below PFSH ED PFSH: Surgical History H/O skin graft x3 S/P tubal ligation (04/08/20) PP BTL. [place] [facility] [place] Family History Denies family history of Diabetes Clotting disorder Hyperlipidemia Anesthesia complication Bleeding disorder Hypertension Stroke Social History Smoking and tobacco/nicotine status: never used tobacco/nicotine Alcohol intake: never Substance/Drug Use: never Physical Exam Const: COMMON NORMALS: alert HENMT: COMMON NORMALS: normocephalic HEAD & SCALP: normocephalic Neck/C-Spine: COMMON NORMALS: full ROM Chest: COMMONS NORMALS: normal inspection of the chest Resp: COMMON NORMALS: normal respiratory effort and clear to auscultation bilaterally AUSCULTATION: clear to auscultation bilaterally Cardio: COMMON NORMALS: regular rate and regular rhythm RATE: regular rate RHYTHM: regular rhythm GI: COMMON NORMALS: Soft to palpation and non-tender PALPATION: Yes Soft to palpation Back/Pelvis: COMMON NORMALS: thoracic and lumbar spine normal to inspection Extremity: RIGHT LOWER EXTREMITY: Yes foot & digits (Mild redness and swelling to the foot dorsal aspect) Neuro: SENSORIUM/ORIENTATION: Yes alert Skin: NARRATIVE SKIN EXAM: Urticarial rash to the torso. Course Vital Signs: Vital signs: Vital Signs Temperature 98.4 F 01/26/24 21:57 Pulse Rate 73 01/26/24 23:08 Respiratory Rate 16 01/26/24 23:08 Blood Pressure 98/63 01/26/24 23:08 Pulse Oximetry 100 01/26/24 23:08 Oxygen Delivery Me thod Room Air 01/26/24 23:08 MDM - Skin/Abscess/Foreign Bdy Medicial Decision Making Patient comes in today for complaints of swelling in rash. Patient appears nontoxic. Patient has hives to the torso. Patient has some swelling and redness to the foot. Patient denies any shortness of breath, difficulty swallowing, nausea. Differential diagnosis includes anaphylaxis, allergic reaction, local reaction to insect sting. Patient was given 50 mg of Benadryl IM, 40 mg of Pepcid p.o., and 10 mg of dexamethasone IM. Patient was monitored for 1 hour with further resolution of the hives and improvement of symptoms. No radiology studies performed this visit Discharge Plan Discharge Patient Disposition: Home Clinical Impression: Allergic reaction to insect sting Qualifiers: Encounter type: initial encounter Injury intent: accidental or unintentional Qualified Code(s): T63.481A - Toxic effect of venom of other arthropod, accidental (unintentional), initial encounter Condition: Stable Prescriptions: New prednisone 20 mg tablet 20 mg PO DAILY 3 Days Qty: 3 0RF No Action amoxicillin 875 mg tablet 875 mg PO BID Qty: 20 0RF -U 106.5-1 mg Capsule 1 cap PO DAILY Qty: 30 0RF ferrous sulfate 325 mg (65 mg iron) tablet 325 mg PO DAILY Qty: 30 0RF Discharge Orders: Discharge ED (Routine); Ordered 01/26/24 Ordered By: Corky Mackay Referrals: Juan Velasquez MD [Primary Care Provider] - Discharge Diet: Usual diet Discharge Activity: Increase activity as tolerated Patient Instructions: Insect Bite or Sting (ED) Activity Restrictions/Additional Instructions: Home and rest. Elevate foot. Drink plenty water and fluids. Continue with medications as directed. Use acetaminophen and/or ibuprofen as needed for pain and discomfort. Use diphenhydramine 25 mg 1 to 2 tablets every 4 hours as needed for itching or rash. Elevate foot is much as possible. Follow-up with primary care in 2 to 3 days for recheck. Return to ED for worsening symptoms such as increased shortness of breath, chest pain, or nausea or vomiting. Coding Level of Care Code ED Camouflage Specialist for Yessenia Carroll
[2024-01-26] MEDS: famotidine 20 mg Tablet 40 MG PO (23:01)
[2024-01-26] MEDS: diphenhydrAMINE 50 mg/mL SDV 1mL IM (23:02)
[2024-01-26] MEDS: dexamethasone 10 mg/mL INJ IM (23:04)
[2024-01-26 23:08] VITALS: BP 98/63; PULSE 73; RESP 16; O2SAT 100
--- NOTE | 2024-01-26 23:15 | PC.NURSE ---
REPORT TAKEN FROM DANIAL CHERY
== END 2024-01-26 23:45 | disposition home or self-care (01) ==
PROVIDERS: Emergency Provider Nurse Practitioner Family; PCP Family Medicine
DX: T63.481A Toxic effect of venom of other arthropod, accidental (unintentional), initial encounter (principal); R21 Rash and other nonspecific skin eruption; Z79.899 Other long term (current) drug therapy
CPT/HCPCS: 96372; 99284; J1100; J1200

== ENCOUNTER 2024-11-27 14:02 | Emergency (ER) | payer BC, MEDICAID, SELFPAY ==
[2024-11-27 14:04] VITALS: BP 111/71; PULSE 81; RESP 14; TEMP 36.7; O2SAT 100; BMI 23.1
--- NOTE | 2024-11-27 15:54 | W.ED.ABDPA2 ---
HPI - Abdominal Pain General: Chief Complaint: Abdominal Pain Stated Complaint: lower right abdominal pain Time Seen by Provider: 11/27/24 15:52 History of Present Illness: 39-year-old female who presents to the emergency room with complaints of right lower quadrant abdominal pain that been going on for a week. She said several loose stools some abdominal bloating some discomfort that she did attributes to gas pain. No previous abdominal surgeries other than tubal ligation. No fevers or chills no vomiting. Associated Symptoms: Denies chills, dysuria and fever(s) Related Data Home Medications ?Medication ?Instructions ?Recorded ?Confirmed No Known Home Medications 11/27/24 11/27/24 Allergies Allergy/AdvReac Type Severity Reaction Status Date / Time venom-wasp Allergy ALGY-Hives Verified 11/27/24 14:08 Review of Systems Const: Denies: fever(s) or chills Card: Denies: chest pain Resp: Denies: dyspnea GI: Reports: abdominal pain : Denies: dysuria, urinary frequency or urinary urgency Musc: Denies: neck pain or back pain Skin/Breast: Denies: rash PFSH ED PFSH: Surgical History S/P tubal ligation (04/08/20) PP BTL. Performed by Dr. Stanley at [facility] [place] in [place], [place] H/O skin graft x3 Family History Denies family history of Diabetes Clotting disorder Hyperlipidemia Anesthesia complication Bleeding disorder Hypertension Stroke Social History Smoking and tobacco/nicotine status: never used tobacco/nicotine Alcohol intake: never Substance/Drug Use: never Physical Exam Const: COMMON NORMALS: no acute distress GENERAL APPEARANCE: cooperative and comfortable ORIENTATION/CONSCIOUSNESS: Yes awake, Yes oriented to person, Yes oriented to place and Yes oriented to time HENMT: COMMON NORMALS: normocephalic, atraumatic and hearing grossly normal bilaterally HEAD & SCALP: normocephalic and atraumatic Resp: COMMON NORMALS: normal respiratory effort, No retractions, No use of accessory muscles and clear to auscultation bilaterally AUSCULTATION: clear to auscultation bilaterally Cardio: COMMON NORMALS: regular rate, regular rhythm and No murmurs present (Cardio) RATE: regular rate RHYTHM: regular rhythm GI: COMMON NORMALS: No hepatosplenomegaly present AUSCULTATION: Yes normoactive bowel sounds PALPATION: Yes Tenderness to palpation present (GI) (Intermittent right lower quadrant pain with sharp percussion), No Guarding due to palpation present (GI) and Yes No hepatosplenomegaly present OTHER: Variable abdominal exam initially sharp percussion patient reported pain when repeated no significant discomfort with direct palpation no significant discomfort negative Rovsing's Extremity: COMMON NORMALS: normal to inspection, capillary refill normal, no clubbing, cyanosis or edema, no calf tenderness and no pedal edema Neuro: SENSORIUM/ORIENTATION: Yes oriented to person, Yes oriented to place and Yes oriented to time Skin: COMMON NORMALS: no rashes or lesions noted GENERAL SKIN EXAM: no rashes or lesions noted Course Vital Signs: Vital signs: Vital Signs Temperature 98.8 F 11/27/24 17:50 Pulse Rate 74 11/27/24 17:50 Respiratory Rate 16 11/27/24 17:50 Blood Pressure 90/55 11/27/24 17:50 Pulse Oximetry 98 11/27/24 17:50 Oxygen Delivery Me thod Room Air 11/27/24 17:50 MDM - Abdominal Pain Medical Decision Making Labs unremarkable. patient still very concerned CT shows constipation no signs of acute appendicitis discharged home encourage [id number] laxatives follow-up with primary care as needed. No emergent findings. Medical Records I reviewed the patient's medical records. Lab Data I reviewed the patient's lab results. 11/27/24 16:01 11/27/24 16:01 Labs/Radiology: Radiology Impressions Abdomen/Pelvis CT 11/27/24 16:37 IMPRESSION: No acute findings. Laboratory Results WBC 7.93 10^3/uL (3.29-11.43) 11/27/24 16:01 RBC 5.12 10^6/uL (3.85-5.65) 11/27/24 16:01 Hgb 13.00 g/dL (11.27-16.99) 11/27/24 16:01 Hct 42.5 % (36-47) 11/27/24 16: MCV 83.0 fl (85-98) L 11/27/24 16:01 MCH 25.4 pg (27-33) L 11/27/24 16: MCHC 30.6 g/dL (30-55) 11/27/24 16: RDW 12.9 % (12.1-15.1) 11/27/24 16: Plt Count 227 10^3/cmm (157-399) 11/27/24 16: MPV 10.8 fL (7.4-10.4) H 11/27/24 16: Neut % (Auto) 67.7 % 11/27/24 16: Lymph % (Auto) 20.8 % 11/27/24 16: Yancey % (Auto) 8.3 % 11/27/24: Eos % (Auto) 2.4 % 11/27/24 16: Baso % (Auto) 0.5 % 11/27/24: Neut # (Auto) 5.37 10^3/uL (1.8-7.7) 11/27/24 16: Lymph # (Auto) 1.7 10^3/uL (0.8-4.8) 11/27/24 16: Yancey # (Auto) 0.7 10^3/uL (0.2-0.9) 11/27/24 16: Eos # (Auto) 0.2 10^3/uL (0.0-0.8) 11/27/24 16: Baso # (Auto) 0.0 10^3/uL (0.0-0.1) 11/27/24 16: Nucleated RBC % (auto) 0 % 11/27/24 16: Nucleated RBCs # 0.0 /100WBC 11/27/24 16: Sodium 140 mmol/L (136-145) 11/27/24 16: Potassium 4.0 mmol/L (3.5-5.1) 11/27/24 16: Chloride 104 mmol/L (98-107) 11/27/24 16: Carbon Dioxide 22 mmol/L (22-29) 11/27/24 16: Anion Gap 18.0 (5-19) 11/27/24 16: BUN 10 mg/dL (6-20) 11/27/24 16:01 Creatinine 0.6 mg/dL (0.5-0.9) 11/27/24 16:01 GFR Calculation 110.7 mL/min (90-130) 11/27/24 16: Glucose 96 mg/dL (65-115) 11/27/24 16:01 Calculated Osmolality 289 mOsm/kg (285-295) 11/27/24 16:01 Calcium 8.9 mg/dL (8.5-10.5) 11/27/24 16: Total Bilirubin 0.2 mg/dL (0.15-1.2) 11/27/24 16:01 AST 17 U/L (0-32) 11/27/24 16: ALT 15 U/L (0-33) 11/27/24 16: Alkaline Phosphatase 62 U/L (35-105) 11/27/24 16:01 Total Protein 7.6 g/dL (6.6-8.7) 11/27/24 16: Albumin 4.6 g/dL (3.5-5.2) 11/27/24 16: Globulin 3.0 g/dL (1.3-4.6) 11/27/24 16:01 Lipase 17 U/L (13-60) 11/27/24 16:01 HCG, Qual Negative (Negative) 11/27/24 16: Urine Color Yellow (Yellow) 11/27/24 15:46 Urine Appearance Clear (CLEAR) 11/27/24 15:46 Urine pH 7.0 (5-7) 11/27/24 15:46 Ur Specific Zortman 1.008 (1.005-1.030) 11/27/24 15:46 Urine Protein Negative (Negative) 11/27/24 15:46 Urine Glucose (UA) Negative (Normal) 11/27/24 15:46 Urine Ketones Negative (Negative) 11/27/24 15:46 Urine Blood Negative (Negative) 11/27/24 15:46 Urine Nitrate Negative (Negative) 11/27/24 15:46 Urine Bilirubin Negative (Negative) 11/27/24 15:46 Urine Urobilinogen 1.0 mg/dL (Negative) 11/27/24 15:46 Ur Leukocyte Esterase Negative (Negative) 11/27/24 15:46 Urine RBC 0-2 /hpf (0-2) 11/27/24 15:46 Urine WBC 0-5 /hpf (0-5) 11/27/24 15:46 Ur Squamous Epith Cells 0-5 /hpf (0-5) 11/27/24 15:46 Amorphous Sediment Not Reportable 11/27/24 15:46 Urine Bacteria 1+ /hpf (NONE) H 11/27/24 15:46 Hyaline Casts 0-4 /lpf H 11/27/24 15:46 Coarse Granular Casts 0-4 /lpf H 11/27/24 15:46 All radiology interpretation(s) finalized by discharge Discharge Plan Discharge Patient Disposition: Home Clinical Impression: Abdominal pain, Constipation Condition: Stable Prescriptions: No Action No Known Home Medications Discharge Orders: Discharge ED (Routine); Ordered 11/27/24 Ordered By: Tio Humphries Referrals: Juan Velasquez MD [Primary Care Provider, [facility]] Discharge Diet: Usual diet Discharge Activity: Increase activity as tolerated Patient Instructions: Constipation (ED), Abdominal Pain (ED), Opioid Safety, Pain Management Activity Restrictions/Additional Instructions: Thank you for choosing [facility] for your healthcare needs today. It is very important that you follow up as instructed or that you return to the Emergency Department should you have concerns or if your condition changes or worsens in any way. Print Language: Uzbek Coding Level of Care Code ED Tool Specialist for Yessenia Carroll
[2024-11-27 16:06] LABS: Basophils % 0.5 %; Eosinophils # 0.2 10^3/uL (0.0-0.8); Eosinophils % 2.4 %; Hematocrit 42.5 % (36-47); Lymphocytes # 1.7 10^3/uL (0.8-4.8); Lymphocytes % 20.8 %; Mean Corpuscular HGB Conc 30.6 g/dL (30-55); Mean Corpuscular Hemoglobin 25.4 pg (27-33); Mean Platelet Volume 10.8 fL (7.4-10.4); Monocytes # 0.7 10^3/uL (0.2-0.9); Monocytes % 8.3 %; Neutrophils # 5.37 10^3/uL (1.8-7.7); Neutrophils % 67.7 %; Nucleated Red Blood Cells % 0 %; Platelet Count 227 10^3/cmm (157-399); Red Blood Count 5.12 10^6/uL (3.85-5.65); Red Cell Distribution Width 12.9 % (12.1-15.1); White Blood Count 7.93 10^3/uL (3.29-11.43)
[2024-11-27 16:08] VITALS: BP 109/72; PULSE 75; RESP 16; O2SAT 99
[2024-11-27 16:16] LABS: Bilirubin Urine Negative (Negative); Blood Urine Negative (Negative); Glucose Urine UA Negative (Normal); Ketones Urine Negative (Negative); Leukocyte Esterase Urine Negative (Negative); Nitrate Urine Negative (Negative); Protein Urine Negative (Negative); Specific Gravity, Urine 1.008 (1.005-1.030); Urine Appearance Clear (CLEAR); Urine Color Yellow (Yellow)
[2024-11-27 16:21] LABS: Add Urine Microscopic? YES; Hyaline Casts Urine 0-4 /lpf; RBC Urine 0-2 /hpf (0-2); Squamous Epithelial Cell Urine 0-5 /hpf (0-5); WBC Urine 0-5 /hpf (0-5)
[2024-11-27 16:24] LABS: HCG, Serum Qual Negative (Negative)
[2024-11-27 16:30] LABS: Alanine Aminotransferase 15 U/L (0-33); Albumin Level 4.6 g/dL (3.5-5.2); Alkaline Phosphatase 62 U/L (35-105); Aspartate Amino Transferase 17 U/L (0-32); Blood Urea Nitrogen 10 mg/dL (6-20); Calcium 8.9 mg/dL (8.5-10.5); Carbon Dioxide 22 mmol/L (22-29); Chloride 104 mmol/L (98-107); Creatinine Clr Calc Pharmacy 112.7706; Glomerular Filtration Rate 110.7 mL/min (90-130); Glucose 96 mg/dL (65-115); Lipase 17 U/L (13-60); Osmolality Calculated 289 mOsm/kg (285-295); Sodium 140 mmol/L (136-145); Total Bilirubin 0.2 mg/dL (0.15-1.2); Total Protein 7.6 g/dL (6.6-8.7)
--- NOTE | 2024-11-27 16:37 | CTR_ITS ---
PROCEDURE INFORMATION: Exam: CT Abdomen And Pelvis With Contrast Exam date and time: 11/27/2024 4:52 PM Age: 39 years old Clinical indication: Abdominal pain; Localized; Right lower quadrant (rlq); Prior surgery; Surgery date: 6+ months; Surgery type: Tubal; Additional info: Abd pain TECHNIQUE: Imaging protocol: Computed tomography of the abdomen and pelvis with contrast. Radiation optimization: All CT scans at this facility use at least one of these dose optimization techniques: automated exposure control; mA and/or kV adjustment per patient size (includes targeted exams where dose is matched to clinical indication); or iterative reconstruction. Contrast material: OMNIPAQUE 350; Contrast volume: 100 ml; Contrast route: INTRAVENOUS (IV); COMPARISON: US OB F/U w BPP wo NST 04/01/2020 12:44 PM RADIATION DOSE METRICS: Total DLP (mGy-cm): 367.17 FINDINGS: Lungs: Lung bases are clear. No pleural effusion. Liver: Normal. No mass. Gallbladder and biliary ducts: Normal. No calcified stones. No ductal dilation. Pancreas: Normal. No ductal dilation. Spleen: Normal. No splenomegaly. Adrenal glands: Normal. No mass. Kidneys and ureters: Normal. No hydronephrosis. Stomach and bowel: Unremarkable. No obstruction. No mucosal thickening. Appendix: Appendix is not seen, however, there is no evidence of appendicitis. Intraperitoneal space: Unremarkable. No free air. No significant fluid collection. Vasculature: Unremarkable. No abdominal aortic aneurysm. Lymph nodes: Unremarkable. No enlarged lymph nodes. Urinary bladder: Unremarkable as visualized. Reproductive: Unremarkable as visualized. Bones/joints: Unremarkable. No acute fracture. Soft tissues: Unremarkable. CT/CT abdomen pelvis w con* [id number] IMPRESSION: No acute findings.
[2024-11-27 16:48] VITALS: BP 120/87; PULSE 72; RESP 16; O2SAT 100
[2024-11-27] MEDS: iohexol 350 mg/mL 500 mL Btl (per mL) IV (16:51)
[2024-11-27 17:30] LABS: Bacteria Urine 1+ /hpf; Coarse Granular Casts Urine 0-4 /lpf; UA Slide Review UA Slide Review Perf
[2024-11-27 17:50] VITALS: BP 90/55; PULSE 74; RESP 16; TEMP 37.1; O2SAT 98
== END 2024-11-27 17:54 | disposition home or self-care (01) ==
PROVIDERS: Emergency Provider Family Medicine; PCP Family Medicine
DX: R10.9 Unspecified abdominal pain (principal); K59.00 Constipation, unspecified
CPT/HCPCS: 74177; 80053; 81001; 83690; 84703; 85025; 99285